=== PATIENT | female | born 1985 | race Caucasian/White ===

== ENCOUNTER 2018-03-10 09:51 | Emergency (ER) | payer SELFPAY ==
[2018-03-10 10:50] LABS: Urine Bacteria <20 /HPF (<20); Urine Mucus 1+ /HPF (NONE SEEN)
[2018-03-10 10:51] LABS: Urine Culture Reflex Order REFLEXED
[2018-03-10 10:55] LABS: Urine Blood 1+ (NEG); Urine Glucose NEGATIVE (NEG); Urine Protein NEGATIVE (NEG); Urine pH 7.5 (5.0-7.0)
--- NOTE | 2018-03-10 11:28 | RAD REPORT ---
EXAM DESCRIPTION: US - Transvaginal Study Probe - 03/10/2018 11:06 am CLINICAL HISTORY: ABD PAIN Pelvic pain. COMPARISON: No comparisons FINDINGS: The uterus is normal in size, shape and echotexture. The uterus measures 7.3 x 5.2 x 4.8 c m. The endometrial stripe measures 8 mm, normal. Both ovaries are normal in size, shape and echotexture. The right ovary measures 3.1 x 2.0 x 1.7 cm. The left ovary measures 3.8 x 2.7 x 2.1 cm. No ovarian or parovarian lesions. No adnexal masses. Normal Doppler blood flow was demonstrated to both ovaries. No significant pelvic ascites. IMPRESSION: Unremarkable study.
--- NOTE | 2018-03-10 13:38 | ER ---
Nurse's Notes [facility] Name: Barbara Pelletier Age: 32 yrs Sex: Female : 1985 Arrival Date: 03/10/2018 Time: 09:55 Bed Ultrasound Private MD: None, None Diagnosis: Abdominal and pelvic pain Presentation: 03/10 09:59 Presenting complaint: Patient states: Pelvic pain for the past 4 days. Denies dysuria aj1 or urinary frequency. States that she had a PAP smear done yesterday and she had some bleeding and was told that her uterus was enlarged and to have an ultrasound done. Denies abnormal vaginal discharge. Transition of care: patient was not received from another setting of care. Onset of symptoms was February 2018. Risk Assessment: Do you want to hurt yourself or someone else? Patient reports no desire to harm self or others. Initial Sepsis Screen: Does the patient meet any 2 criteria? No. Patient's initial sepsis screen is negative. Does the patient have a suspected source of infection? No. Patient's initial sepsis screen is negative. Care prior to arrival: None. 09:59 Method Of Arrival: Ambulatory aj1 09:59 Acuity: MARIO 3 aj1 Triage Assessment: 10:02 General: Appears in no apparent distress. comfortable, Behavior is calm, cooperative, aj1 appropriate for age. Pain: Complains of pain in pelvis Pain currently is 8 out of 10 on a pain scale. Neuro: Level of Consciousness is awake, alert, obeys commands. Cardiovascular: Patient's skin is warm and dry. Respiratory: Airway is patent Respiratory effort is even, unlabored, Respiratory pattern is regular, symmetrical. : Denies burning with urination, discharge, urinary frequency. 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 - Social history:: Smoking status: Patient uses tobacco products, smokes one-half pack cigarettes per day. - Ebola Screening: : Patient denies travel to an Ebola-affected area in the 21 days before illness onset. Screenin:09 Abuse screen: Denies threats or abuse. Denies injuries from another. Nutritional ph screening: No deficits noted. Tuberculosis screening: No symptoms or risk factors identified. Fall Risk None identified. Assessment: 10:21 General: Appears in no apparent distress. comfortable, Behavior is calm, cooperative, ph appropriate for age, Denies fever. Pain: Complains of pain in suprapubic area and pelvis. Neuro: Level of Consciousness is awake, alert, obeys commands, Oriented to person, place, time, situation. Cardiovascular: Capillary refill < 3 seconds in bilateral fingers Patient's skin is warm and dry. Respiratory: Airway is patent Respiratory effort is even, unlabored, Respiratory pattern is regular, symmetrical. GI: Reports lower abdominal pain, Patient currently denies diarrhea, nausea, vomiting. : Reports pain in suprapubic area vaginal bleeding that is light flow, spotty, Denies burning with urination, discharge, urinary frequency. Derm: Skin is intact, is healthy with good turgor, Skin is pink, warm \T\ dry. Musculoskeletal: Circulation, motion, and sensation intact. Range of motion: intact in all extremities. 11:52 Reassessment: Patient appears in no apparent distress at this time. Patient and/or ph family updated on plan of care and expected duration. Pain level reassessed. Patient is alert, oriented x 3, equal unlabored respirations, skin warm/dry/pink. Pt d/c home. Vital Signs: 10:02 BP 109 / 70; Pulse 68; Resp 16; Temp 97.1; Pulse Ox 99% on R/A; Weight 86.18 kg (R); aj1 Height 5 ft. 4 in. (162.56 cm) (R); Pain 8/10; 11:52 BP 110 / 72; Pulse 65; Resp 18; Temp 97.8; Pulse Ox 99% on R/A; ph 10:02 Body Mass Index 32.61 (86.18 kg, 162.56 cm) aj1 ED Course: 09:55 Patient arrived in ED. sb2 09:56 None, None is Private Physician. sb2 09:56 Crystal [facility]C [facility]. kb 09:56 Anuj Alfaro MD is Attending Physician. kb 10:01 Triage completed. aj1 10:02 Arm band placed on Patient placed in an exam room. aj1 10:09 Rosalinda Hillman, RN is Primary Nurse. ph 10:10 Patient has correct armband on for positive identification. Bed in low position. Call ph light in reach. Side rails up X 1. Pulse ox on. NIBP on. Warm blanket given. 11:06 Transvaginal Study (Probe) In Process Unspecified. EDMS 11:52 No provider procedures requiring assistance completed. Patient did not have IV access ph during this emergency room visit. Administered Medications: No medications were administered Outcome: 11:40 Discharge ordered by . kb 11:53 Discharged to home ambulatory. ph 11:53 Condition: good 11:53 Discharge instructions given to patient, Instructed on discharge instructions, follow up and referral plans. Demonstrated understanding of instructions, follow-up care. 11:53 Patient left the ED. ph Addendum: 03/13/2018 07:55 Addendum: Culture Results: Positive urine culture. Phone call Attempt #1 left voicemail.a a5 14:30 Addendum: Culture Results: Phone call Attempt #2 left voicemail. a a5 Signatures: Dispatcher [employer] EDMS Crystal Saba, RAILROAD POLICE-C RAILROAD POLICE-CkDidi Dinh, RN RN aj1 Veena Conte, RN RN aa5 Rosalinda Hillman, RN RN Luciana Rodriguez sb2
--- NOTE | 2018-03-10 13:40 | EDPHYS ---
Physician Documentation [facility] Name: Barbara Pelletier Age: 32 yrs Sex: Female : 1985 Arrival Date: 03/10/2018 Time: 09:55 Bed Ultrasound Private MD: None, None ED Physician Anuj Alfaro HPI: 03/10 10:18 This 32 yrs old Female presents to ER via Ambulatory with complaints of kb Pelvic Pain. 10:18 The patient presents with pelvic pain, that is located in/on the suprapubic area, the kb pain does not radiate, the pain is described as moderate. Onset: The symptoms/episode began/occurred 4 day(s) ago. Modifying factors: The symptoms are alleviated by nothing, the symptoms are aggravated by pressure. Associated signs and symptoms: The patient has no apparent associated signs or symptoms. Severity of symptoms: At their worst the symptoms were moderate, in the emergency department the symptoms are unchanged. The patient is sexually active, reportedly has a single partner, uses protection during intercourse. The patient has not experienced similar symptoms in the past. The patient has been recently seen by a physician: yesterday, with similar presenting complaints, and apparently given a diagnosis of enlarged uterus, lab tests were done. Pt reports she has had pelvic pain for 4 days, was seen yesterday and had pap smear and swabs taken. "They referred me to have a pelvic ultrasound, but I don't have insurance to get it done.". 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 - Social history:: Smoking status: Patient uses tobacco products, smokes one-half pack cigarettes per day. - Ebola Screening: : Patient denies travel to an Ebola-affected area in the 21 days before illness onset. ROS: 10:16 Constitutional: Negative for fever, chills, and weight loss, Cardiovascular: Negative kb for chest pain, palpitations, and edema, Respiratory: Negative for shortness of breath, cough, wheezing, and pleuritic chest pain, MS/Extremity: Negative for injury and deformity, Skin: Negative for injury, rash, and discoloration, Neuro: Negative for headache, weakness, numbness, tingling, and seizure. 10:16 : Positive for pelvic pain. Exam: 10:16 Constitutional: This is a well developed, well nourished patient who is awake, alert, kb and in no acute distress. Head/Face: Normocephalic, atraumatic. Chest/axilla: Normal chest wall appearance and motion. Nontender with no deformity. No lesions are appreciated. Cardiovascular: Regular rate and rhythm with a normal S1 and S2. No gallops, murmurs, or rubs. Normal PMI, no JVD. No pulse deficits. Respiratory: Lungs have equal breath sounds bilaterally, clear to auscultation and percussion. No rales, rhonchi or wheezes noted. No increased work of breathing, no retractions or nasal flaring. Skin: Warm, dry with normal turgor. Normal color with no rashes, no lesions, and no evidence of cellulitis. MS/ Extremity: Pulses equal, no cyanosis. Neurovascular intact. Full, normal range of motion. Neuro: Awake and alert, GCS 15, oriented to person, place, time, and situation. Cranial nerves II-XII grossly intact. Motor strength 5/5 in all extremities. Sensory grossly intact. Cerebellar exam normal. Normal gait. 10:16 Abdomen/GI: Inspection: abdomen appears normal, Bowel sounds: normal, in all quadrants, Palpation: soft, in all quadrants, moderate abdominal tenderness, in the suprapubic area. Vital Signs: 10:02 BP 109 / 70; Pulse 68; Resp 16; Temp 97.1; Pulse Ox 99% on R/A; Weight 86.18 kg (R); aj1 Height 5 ft. 4 in. (162.56 cm) (R); Pain 8/10; 11:52 BP 110 / 72; Pulse 65; Resp 18; Temp 97.8; Pulse Ox 99% on R/A; ph 10:02 Body Mass Index 32.61 (86.18 kg, 162.56 cm) aj1 MDM: 10:05 Patient medically screened. kb 10:17 Data reviewed: vital signs, nurses notes. Data interpreted: Pulse oximetry: on room air kb is 99 %. Interpretation: normal. 11:36 Counseling: I had a detailed discussion with the patient and/or guardian regarding: the kb historical points, exam findings, and any diagnostic results supporting the discharge/admit diagnosis, radiology results, the need for outpatient follow up, an OB/Gyne specialist, to return to the emergency department if symptoms worsen or persist or if there are any questions or concerns that arise at home. 03/10 10:26 Order name: Urine Dipstick--Ancillary (enter results); Complete Time: 10:59 eb 03/10 10:26 Order name: Urine --Ancillary (enter results); Complete Time: 10:59 eb 03/10 10:13 Order name: Urine Dipstick-Ancillary (obtain specimen); Complete Time: 10:23 kb 03/10 10:24 Order name: US Transvaginal Study (Probe); Complete Time: 11:30 kb 03/10 10:26 Order name: Urine Microscopic Only; Complete Time: 10:52 eb 03/10 10:53 Order name: Urine Culture [facility] 03/10 10:13 Order name: Urine Test (obtain specimen); Complete Time: 10:23 kb Administered Medications: No medications were administered Disposition: 12:50 Co-signature as Attending Physician, Anuj Alfaro MD. rn Disposition: 03/10/18 11:40 Discharged to Home. Impression: Abdominal and pelvic pain. - Condition is Stable. - Discharge Instructions: Pelvic Pain, Female, [id number]. - Medication Reconciliation Form, Thank You Letter, Antibiotic Education, Prescription Opioid Use form. - Follow up: Emergency Department; When: As needed; Reason: Worsening of condition. Follow up: Private Physician; When: 2 - 3 days; Reason: Recheck today's complaints, Continuance of care, Re-evaluation by your physician. Signatures: Dispatcher [employer] EDMS Crystal Saba FNP-C FNP-Didi Guallpa RN RN aj1 Anuj Alfaro MD MD rn Hall, Patricia, RN RN ph Corrections: (The following items were deleted from the chart) 11:53 11:40 03/10/2018 11:40 Discharged to Home. Impression: Abdominal and pelvic pain. ph Condition is Stable. Forms are Medication Reconciliation Form, Thank You Letter, Antibiotic Education, Prescription Opioid Use. Follow up: Emergency Department; When: As needed; Reason: Worsening of condition. Follow up: Private Physician; When: 2 - 3 days; Reason: Recheck today's complaints, Continuance of care, Re-evaluation by your physician. kb
== END 2018-03-10 11:53 | disposition home or self-care (01) ==
LOC: ER 09:51
DX: R10.2 Pelvic and perineal pain (principal); F17.210 Nicotine dependence, cigarettes, uncomplicated; Z88.8 Allergy status to other drugs, medicaments and biological substances
CPT/HCPCS: 76830; 81003; 81015; 81025; 87077; 87086; 87088; 87186; 99283